=== PATIENT | male | born 1955 | race Caucasian/White ===

== ENCOUNTER 2017-01-18 19:53 | Inpatient (IN) | payer OTHER ==
--- NOTE | ~2017-01-18 | DS ---
Discharge Summary [facility] [address] [place]. [address] NAME: DANNY QUAN : 53 STATUS : DIS IN PAT#: [id number] AGE: 61 ADM/REG DATE : 01/18/17 MR#: [id number] REPORT SERV DATE: 01/26/17 DICTATED BY: Thomas SMITH DATE: 01/25/17 REPORT STATUS : Draft TRANSCRIBED BY: MODL DATE: 01/25/17 ADMISSION DATE: 01/18/2017 DISCHARGE DATE: 01/25/2017 DISCHARGE DIAGNOSES: 1. Cellulitis right lower extremity with superficial wounds. 2. Chronic lymphedema with venous stasis. 3. Chronic obstructive pulmonary disease with chronic home oxygen. 4. Chronic hyponatremia. 5. General debility. 6. Chronic diastolic heart failure with cor pulmonale. 7. Hypertension. 8. Hypothyroidism. 9. Cutaneous andrea. 10.Morbid obesity. 11.Tobacco abuse. HISTORY OF PRESENT ILLNESS: For complete history, please see admission H and P by Dr. Liborio Velez as well as interim discharge summary by myself on 01/22/2017. Briefly, Mr. Quan is a 61-year-old gentleman who presented to the emergency room with lower extremity wounds with drainage. He was admitted to the Hospitalist Service for further evaluation and treatment. HOSPITAL COURSE: The wound culture did come up positive, and the wound culture showed abundant growth of Enterobacter species, Proteus mirabilis, as well as methicillin sensitive Staphylococcus aureus. Initially, Mr. Quan was placed on vancomycin and Rocephin; however, when his final wound culture came back, he was placed on Maxipime 1 g IV q.6 and his vancomycin and Rocephin were discontinued. Over the next several days, he continued to improve. The right lower extremity erythema lessened. His home dose of Lasix 120 mg p.o. daily was changed to 2 mg of Bumex p.o. daily. He did diurese nicely with this change, and on the morning of January 25, he was medically approved as well as insurance approval was received for Mr. Quan to transfer to [facility] to continue rehab and wound care. When I saw him on the late morning of January 22, he was in no acute distress. His right lower extremity erythema continued to improve. He had no new complaints, and he was ready to go to [facility] for rehab. His vital signs were stable. He was afebrile, O2 saturation on 4 L 94%. Therefore, it was felt that he could transfer over to rehab safely, continuing oral antibiotics coverage for his wounds as well as PT and OT for his immobility and general debility. DISCHARGE INSTRUCTIONS: Include: 1. Activity as tolerated with PT and OT, evaluate and treat. 2. Diet 4 g sodium, cardiac diet is recommended with an 1800 mL fluid restriction on a daily basis. DISCHARGE MEDICATIONS: Are as follows: Discharge Summary [place] [id number] [place]. [address] NAME: DANNY QUAN : 53 STATUS : DIS IN PAT#: [id number] AGE: 61 ADM/REG DATE : 01/18/17 MR#: [id number] REPORT SERV DATE: 01/26/17 DICTATED BY: Thomas SMITH DATE: 01/25/17 REPORT STATUS : Draft TRANSCRIBED BY: ADORE DATE: 01/25/17 1. Bumex 2 mg p.o. daily. 2. Synthroid 125 mcg p.o. daily. 3. Nystatin topical t.i.d. to affected area. 4. MiraLAX one packet p.o. b.i.d. 5. Senokot 2 tablets p.o. daily, hold for loose stool. 6. Percocet 10/325 one p.o. q.4 hours p.r.n., hold for sedation. 7. Levaquin 750 mg p.o. daily to be discontinued after the last dose on 01/29/2017. Other discharge instructions include Mr. Quan will follow up with his primary care provider, Dr. Najma Holm, after discharge from rehab. DICTATED BY: DAMIAN Rizo DICTATED FOR: Eloisa Barrow/ADORE DAMIAN Rizo Thomas Smith M.D. / [id number] CC: Eloisa De La Rosa M.D.
--- NOTE | ~2017-01-18 | HP ---
History And Physical [place] [id number] [facility] [place]. [address] NAME: DANNY QUAN : 53 STATUS : ADM Boris PAT#: [id number] AGE: 61 ADM/REG DATE : 01/18/17 MR#: [id number] REPORT SERV DATE: 01/19/17 DICTATED BY: MARIA TERESA SIDDIQUI DATE: 01/19/17 REPORT STATUS : Draft TRANSCRIBED BY: MODL DATE: 01/19/17 DATE OF ADMISSION: 01/18/2017 POINT OF ENTRY: [facility] Emergency Department. CHIEF COMPLAINT: Lower extremity wounds with drainage. HISTORY OF PRESENT ILLNESS: Mr. Quan is a 61-year-old gentleman with history of morbid obesity with chronic lower extremity lymphedema and chronic venous stasis with stasis dermatitis and recurrent cellulitis, who presents to the emergency department today with a three to four-day history of worsening lower extremity swelling, erythema, warmth, as well as superficial skin ulcerations with some serous drainage. The patient was last admitted to our service in 12/2015 for recurrent lower extremity cellulitis. After being treated and diuresed, he was discharged to rehab where he states he stayed about two to three weeks and then was discharged to home with home health and home wound care therapy. The patient states that his legs have done well since then. He has not required any further hospitalizations and/or ER visits up until tonight. The patient states that for the past few days, he started to notice worsening lower extremity edema, erythema, as well as pain and warmth on palpation. He also reports some right greater than left superficial skin breakdown and associated serous drainage from the legs. He did not call any of his physicians to receive oral antibiotic therapy. He denies any fevers, night sweats, or chills. Initial evaluation in the emergency department was notable for stable vital signs. He is afebrile. Labs were notable for a normal white count with a sodium level of 129. Chest x- ray shows some mild intravascular volume overload. Lower extremities were negative for DVT. Urinalysis was positive for urinary tract infection. The patient was started on IV Rocephin and vancomycin and admitted to the Hospitalist Service. REVIEW OF SYSTEMS: Comprehensive review of systems otherwise negative unless listed in the history of present illness. PREVIOUS MEDICAL HISTORY: 1. Morbid obesity. 2. Chronic lower extremity lymphedema with chronic venous stasis and stasis dermatitis. 3. Recurrent lower extremity cellulitis. 4. COPD, on chronic 4 L nasal cannula. 5. Presumed obstructive sleep apnea and obesity hypoventilation syndrome. 6. Hypothyroidism. 7. Chronic hepatitis C. 8. Hypertension. 9. History of breast cancer, status post mastectomy. 10.Reported history of chronic diastolic congestive heart failure with cor pulmonale, History And Physical [address] [address] NAME: DANNY QUAN : 53 STATUS : ADM Boris PAT#: [id number] AGE: 61 ADM/REG DATE : 01/18/17 MR#: [id number] REPORT SERV DATE: 01/19/17 DICTATED BY: MARIA TERESA SIDDIQUI DATE: 01/19/17 REPORT STATUS : Draft TRANSCRIBED BY: ADORE DATE: 01/19/17 although no echocardiogram in our system to review. 11.History of peripheral vascular disease and abdominal aortic aneurysm. SURGICAL HISTORY: Mastectomy. ALLERGIES: NO KNOWN DRUG ALLERGIES. HOME MEDICATIONS: 1. Lasix 40 mg t.i.d. 2. Levothyroxine 125 mcg daily. 3. Lisinopril 20 mg daily. 4. Aleve 220 mg b.i.d. 5. Roxicodone with Tylenol 10/325 one tablet q.6 hours p.r.n. SOCIAL HISTORY: Denies any tobacco, alcohol, or illicits. FAMILY HISTORY: Notable for coronary artery disease and hypertension. LABS AND IMAGIN. White count is 7.7, hemoglobin is 14.7, hematocrit is 44.3, platelets 227. INR 1.2. 2. Sodium is 129, potassium 3.5, chloride 91, carbon dioxide 34, BUN 7, creatinine 0.63, glucose is 98, calcium is 8.2, magnesium is 1.7, protein is 7.5, albumin is 2.8, bili is 1.3, ALT is 13, AST is 19, alk phos is 54. 3. Troponin is negative. BNP is 41. 4. Lactic acid 0.8. 5. Lipase is 71. 6. Urinalysis; specific gravity is 1.011, moderate leukocyte esterase with 36 white blood cells per high-powered field. 7. Lower extremity Doppler negative for DVT. 8. Chest x-ray per my review shows poor penetration and inspiratory technique, but is concerned for some mild intravascular volume overload. PHYSICAL EXAMINATION: VITAL SIGNS: Temperature is 97.9 degrees Fahrenheit, pulse is 106, respirations 18, satting 94% on room air, blood pressure 150/80. On recheck, blood pressure is now 130/71, pulse is 71. GENERAL: The patient is awake, alert, in no acute distress. Resting comfortably. He is a morbidly obese appearing male. He is very disheveled and unkempt. HEENT: Atraumatic and normocephalic. Moist mucous membranes. Pupils are equal, round, reactive to light and accommodation. Extraocular eye movements intact. No scleral icterus. NECK: No jugular venous distention. No carotid bruits. CARDIAC: Regular rate and rhythm. No murmurs or gallops. Normal S1 and S2. LUNGS: Clear to auscultation bilaterally. No wheezes, rhonchi, or crackles. Distant breath sounds. ABDOMEN: Obese, soft, nontender, nondistended. Good bowel sounds. No rebound, guarding, or rigidity. EXTREMITIES: Bilateral lower extremities show evidence of chronic lymphedema with chronic History And Physical [address] [address] NAME: DANNY QUAN : 53 STATUS : ADM Boris PAT#: [id number] AGE: 61 ADM/REG DATE : 01/18/17 MR#: [id number] REPORT SERV DATE: 01/19/17 DICTATED BY: MARIA TERESA SIDDIQUI DATE: 01/19/17 REPORT STATUS : Draft TRANSCRIBED BY: MODJames DATE: 01/19/17 venous stasis and stasis dermatitis. The left lower extremity does not appear to have any purulence or drainage. It is somewhat warm to the touch. The right lower extremity has few different areas of superficial skin ulcerations and/or breakdown with associated serous drainage in addition to erythema and warmth on palpation, but no palpable fluid collections. SKIN: Warm and dry except for noted above. PSYCHIATRIC: Affect appropriate. NEUROLOGIC: Alert and oriented x3. Cranial nerves 2 through 12 grossly intact. Speech is normal. Gait not assessed. ASSESSMENT AND PLAN: Mr. Quan is a 61-year-old gentleman with history of morbid obesity, lower extremity lymphedema with chronic venous stasis and stasis dermatitis, who presents with a three to four-day history of the above-mentioned complaints with findings concerning most of lower extremity venous stasis dermatitis with possible cellulitis. PROBLEM LIST: 1. Lower extremity lymphedema with venous stasis dermatitis and possible overlying cellulitis. 2. Hyponatremia. 3. Urinary tract infection. 4. Morbid obesity. 5. Chronic hypoxic respiratory failure. 6. Presumed obstructive sleep apnea, obesity hypoventilation syndrome. 7. History of chronic diastolic congestive heart failure. PLAN: 1. Lower extremity lymphedema with venous stasis dermatitis and possible cellulitis. We will empirically place the patient on IV antibiotics of vancomycin and Rocephin. Follow up blood and wound cultures. We will consult Wound Care for assistance. We will also convert the patient's Lasix to IV form for at least 24 hours to assist with diuresis. The patient may also benefit from some Unna boots and/or compressive wound therapy. We will defer to wound care nurses. 2. Hyponatremia. The patient had some degree of chronic hyponatremia per review of [facility] records. Suspect this might be due to volume overload. We will check urine lytes, thyroid function studies, serum osmolality, but we will see how his sodium level responds to the IV Lasix diuresis. 3. Urinary tract infection. Follow up urine culture. Treating with IV Rocephin. 4. Reported history of chronic diastolic congestive heart failure with cor pulmonale. I do not have any echocardiogram in our system to review that documents this. I will order an echocardiogram to confirm. 5. Hypertension. Continue the patient's home medications. 6. Hypothyroidism. Checking thyroid function studies. 7. DVT prophylaxis. Lovenox subcu. CODE STATUS: The patient wishes to be full code. History And Physical [address] [address] NAME: DANNY QUAN : 53 STATUS : ADM Boris PAT#: [id number] AGE: 61 ADM/REG DATE : 01/18/17 MR#: [id number] REPORT SERV DATE: 01/19/17 DICTATED BY: MARIA TERESA SIDDIQUI DATE: 01/19/17 REPORT STATUS : Draft TRANSCRIBED BY: ADORE DATE: 01/19/17 ANITRA/ADORE Maria Teresa Siddiqui MD / [id number] CC: Eloisa Dick M.D.
--- NOTE | ~2017-01-18 | IDS ---
Interim Discharge Summary [facility] [address] [place]. [address] NAME: DANNY QUAN : 53 STATUS : ADM IN [facility]#: [id number] AGE: 61 ADM/REG DATE : 01/18/17 MR#: [id number] REPORT SERV DATE: 01/23/17 DICTATED BY: Thomas SMITH DATE: 01/22/17 REPORT STATUS : Draft TRANSCRIBED BY: MODL DATE: 01/22/17 ADMISSION DATE: 01/18/2017 DISCHARGE DATE: CURRENT INTERIM DIAGNOSES: 1. Cellulitis of the right lower extremity with superficial wounds, wound culture shows MSSA, Proteus, and Enterobacter. 2. Chronic lymphedema with venous stasis. 3. Chronic obstructive pulmonary disease with chronic home oxygen. 4. Chronic hyponatremia. 5. General debility. 6. Chronic diastolic heart failure with cor pulmonale. 7. Volume overload. 8. Hypertension. 9. Hypothyroidism. 10.Cutaneous andrea. 11.Morbid obesity. 12.Tobacco abuse. IMAGING AND DIAGNOSTICS: 1. Echocardiogram on 01/20/2017 showed preserved LV systolic function with estimated EF of 60% to 65%. The interventricular septum is flattened during systole and diastole, concerning for RV pressure and volume overload. No clear evidence of valvular regurgitation or stenosis. Elevated right atrial and central venous pressures. 2. On 01/18/2017, portable chest x-ray showed low lung volumes with mild left basilar atelectasis, otherwise no acute cardiopulmonary abnormality identified. 3. On 01/18/2017, venous duplex of the bilateral lower extremities was negative for DVT, however, shows small bilateral Astudillo cysts. HISTORY OF PRESENT ILLNESS: For complete history, please refer to admission H and P by Dr. Naveed Velez. Briefly, Mr. Quan is a pleasant 61-year-old gentleman with chronic lymphedema and chronic venous stasis with stasis dermatitis and recurrent cellulitis, presenting to the emergency room on his date of admission with 3 to 4 day history of worsening lower extremity swelling, erythema, warmth, and superficial skin ulcerations with serous drainage. He was admitted to the Hospitalist Service for further evaluation and treatment. HOSPITAL COURSE: Mr. Quan was admitted initially the CDU with a diagnosis of lower extremity cellulitis, hyponatremia, urinary tract infection, and lymphedema. He was placed on oxygen as he is O2 dependent with COPD. He was given IV Lasix q.8 hours for 24 hours and placed on Rocephin and vancomycin IV. A Wound Care consult was requested. I initially saw the patient on 01/19/2017. He complained of increasing pain in the right lower extremity. He states that he was always short of breath and worse with activity. He reported that he smokes a pack and a half a day, had no intention of stopping smoking, and utilize home oxygen at 4 L per nasal cannula continuously. He is followed by a primary care provider Dr. Najma Holm, on an outpatient basis. His right lower extremity was recently dressed by Interim Discharge Summary [place] [id number] [facility] [place]. [address] NAME: DANNY QUAN : 53 STATUS : ADM IN [facility]#: [id number] AGE: 61 ADM/REG DATE : 01/18/17 MR#: [id number] REPORT SERV DATE: 01/23/17 DICTATED BY: Thomas SMITH DATE: 01/22/17 REPORT STATUS : Draft TRANSCRIBED BY: ADORE DATE: 01/22/17 wound care nurse, therefore on this date, I did not unwrap it to assess his wounds. He did have pitting edema bilaterally right leg greater than the left. I was able to see some right lower extremity erythema above the top of the dressing on his right calf. Looking back, he has chronic hyponatremia. In addition, Mr. Quan describes poor living conditions at his home where he basically sits up all day long drinking Diet Cokes or water and smoking cigarettes. He reports that he has not been able to sleep in his bed as his bed is too high off the ground for him to get in, therefore he sleeps on the couch nightly. In addition, he reports that he has a severe problem with bugs and roaches in his home. He is unable to reach the most of his body parts for bathing and hygiene purposes, and especially his feet he cannot reach them to bathe them. He has severe dry crusting on both of his feet bilaterally. I asked Physical therapy to evaluate the patient on 01/20/2017, they have recommended detention facility at the time of discharge. Mr. Quan was placed on bed rest with elevation of his legs. He does have cutaneous andrea in the skin folds of his morbidly obese abdomen. Nystatin powder has been prescribed for this. He is on fluid restrictions and did receive IV diuresis through the morning of 01/22/2017. His wound culture came back showing abundant growth of Enterobacter, Proteus, and methicillin- sensitive Staph aureus. He had very little improvement of the erythema and draining of his wounds on the right lower extremity, and on the , I changed his antibiotics from vancomycin and Rocephin to IV Maxipime 1 g q.6 hours. He does have three separate superficial wounds on the right lower extremity. They are very foul smelling and continued to drain scant amounts. Wound Care has seen the patient and recommended cleaning his wounds with cleanser, patting dry, and covering ulcers with Mepilex Ag foam. I did give him a dose of Bumex this afternoon p.o. 2 mg and scheduled it for daily as the patient has been on 120 mg of Lasix p.o. on a daily basis prior to admission. He did have good diuretic response. DISPOSITION: Currently pending with the change from IV Rocephin and vancomycin today to Maxipime. Hopefully, his cellulitis in the right lower extremity will show improvement. He will be going to [facility]. He is medically approved for them, however, pending insurance approval as the patient has [employer]. DICTATED BY: CHRIS Rizo-BC PREETI/ADORE Thomas Smith M.D. / [id number] CC: Eloisa Barrow M.D.
[~2017-01-18 19:53] MED LIST: ALEVE220 MG PO; ASA5GR PO; ASAB PO; ASABAYER PO; CIP5 PO; DEMA10T PO; DSS PO; FLORASTOR250 MG PO; KLOR-CON M2020 MEQ PO; L40 PO; LACHYDRIN LOT225 GM T; LEVAQUIN750 MG PO; LEVOTHYROXIN125 MCG PO; LEVOTHYROXIN75 MCG PO; LOTRIMIN AF12 EX; LOTRIMIN AF12 TOP; MAGOX4 PO; NORCO1 TA1 PO; NORCO1 TAB PO; PRAVAC PO; PRIN10 PO; PRIN2.5 PO; PRIN20 PO; SILVADENE1 % TOP; SYN125 PO; VIBRATAB100 MG PO; ZESTRIL20 MG PO; ZYVOXPO PO
[2017-01-18 20:20] LABS: ASCORBIC ACID (UR NOT ORDER) NEG (NEG); BILIRUBIN, URINE NEGATIVE (NEG); ER URINALYSIS TAT 0 Hrs 13 Mins; KETONE, URINE NEGATIVE (NEG); LEUKOCYTE ESTERASE(NOT OR MOD (NEG); NITRITE (URINE) NEG (NEG); WBC (NOT ORDERED) (RFLEX) 36 (0-5)
[2017-01-18] MEDS ORDERED: PERCOCET 10/3251 TAB PO (20:41)
[2017-01-18] MEDS ORDERED: LEVOTHYROXIN125 MCG PO (20:42)
[2017-01-18] MEDS ORDERED: L40 PO (20:43)
[2017-01-18] MEDS ORDERED: ZESTRIL20 MG PO (20:44)
[2017-01-18] MEDS ORDERED: ALEVE220 MG PO (20:44)
[2017-01-18 20:52] LABS: BASOPHILS 0.3 %; BASOPHILS ABSOLUTE 0.02 10/3/uL (0.0-0.16); EOSINOPHILS 2.6 %; ER CBC TAT 0 Hrs 07 Mins; HEMATOCRIT 44.3 % (40.0-51.0); HEMOGLOBIN 14.7 g/dL (13.6-17.8); IMMATURE GRANULOCYTES 0.1 %; IMMATURE GRANULOCYTES ABSOLUTE 0.01 10/3/uL (0.0-0.11); LYMPHOCYTES 17.5 %; LYMPHOCYTES ABSOLUTE 1.35 10/3/uL (0.67-4.30); MEAN CORPUS HGB CONC 33.2 g/dL (32.0-36.0); MEAN CORPUSCULAR HEMOGLOB 30.2 pg (26.0-34.0); MEAN CORPUSCULAR VOLUME 91.2 fL (80-100); MEAN PLATELET VOLUME 8.8 fL (9.2-13.0); MONOCYTES 15.2 %; MONOCYTES ABSOLUTE 1.17 10/3/uL (0.21-1.20); NEUTROPHILS 64.3 %; NEUTROPHILS ABSOLUTE 4.95 10/3/uL (2.02-8.40); PLATELET COUNT 227 10/3/uL (150-400); RBC DISTRIBUTION WIDTH 13.1 % (12.0-16.0); RED CELL COUNT 4.86 10/6/uL (4.7-6.1); WHITE BLOOD CELLS 7.7 10/3/uL (4.5-10.5)
[2017-01-18 20:54] LABS: MANUAL DIFF NO %
[2017-01-18 21:00] LABS: INTERNATIONAL NORMAL RATI 1.2 UNITS (-); PARTIAL THROMBO TIME 42.3 SEC (22.5-37.2); PROTIME (NOT ORD) 15.3 SEC (12.0-14.5)
[2017-01-18 21:13] LABS: ALBUMIN 2.8 G/DL (3.5-5.0); ALKALINE PHOSPHATASE 54 U/L (45-117); BUN (BLOOD UREA NITROGEN) 7 MG/DL (6-23); CALCIUM, SERUM 8.2 MG/DL (8.5-10.4); CHEST PAIN PROFILE TAT 0 Hrs 00 Mins; CHLORIDE, SERUM 91 MMOL/L (96-112); CO2 (CARBON DIOXIDE) 34 MMOL/L (24-34); CREATININE 0.63 MG/DL (0.70-1.30); DIRECT BILIRUBIN 0.4 MG/DL (0.0-0.4); GFR AFRICAN AMERICAN 122 ML/MIN (>=60); GFR NON AFRICAN AMERICAN 106 ML/MIN (>=60); GLUCOSE, SERUM 98 MG/DL (60-99); INDIRECT BILIRUBIN(NOT ORDER) 0.9 MG/DL (0.1-0.9); POTASSIUM, SERUM 3.5 MMOL/L (3.5-5.3); SGOT(AST) 19 U/L (5-40); SGPT(ALT) 13 U/L (5-65); SODIUM, SERUM 129 MMOL/L (135-148); TOTAL BILIRUBIN 1.3 MG/DL (0-1.2); TOTAL PROTEIN 7.5 G/DL (6.0-8.5); TROPONIN I <0.02 NG/ML (<0.05)
[2017-01-18 21:14] LABS: LACTATE 0.8 MMOL/L (0.3-2.4)
[2017-01-19 06:50] LABS: BUN (BLOOD UREA NITROGEN) 8 MG/DL (6-23); CALCIUM, SERUM 8.4 MG/DL (8.5-10.4); CHLORIDE, SERUM 92 MMOL/L (96-112); CREATININE 0.76 MG/DL (0.70-1.30); FREE T4 1.19 NG/DL (0.76-1.46); GFR AFRICAN AMERICAN 113 ML/MIN (>=60); GFR NON AFRICAN AMERICAN 98 ML/MIN (>=60); GLUCOSE, SERUM 94 MG/DL (60-99); SODIUM, SERUM 131 MMOL/L (135-148)
[2017-01-19 06:53] LABS: CO2 (CARBON DIOXIDE) 29 MMOL/L (24-34); POTASSIUM, SERUM 3.9 MMOL/L (3.5-5.3)
[2017-01-19 08:26] LABS: BASOPHILS 0.4 %; BASOPHILS ABSOLUTE 0.03 10/3/uL (0.0-0.16); EOSINOPHILS 3.5 %; EOSINOPHILS ABSOLUTE 0.26 10/3/uL (0.0-0.53); HEMATOCRIT 48.2 % (40.0-51.0); HEMOGLOBIN 15.7 g/dL (13.6-17.8); IMMATURE GRANULOCYTES 0.3 %; IMMATURE GRANULOCYTES ABSOLUTE 0.02 10/3/uL (0.0-0.11); LYMPHOCYTES 13.6 %; LYMPHOCYTES ABSOLUTE 1.01 10/3/uL (0.67-4.30); MEAN CORPUS HGB CONC 32.6 g/dL (32.0-36.0); MEAN CORPUSCULAR HEMOGLOB 30.7 pg (26.0-34.0); MEAN PLATELET VOLUME 9.5 fL (9.2-13.0); MONOCYTES 12.9 %; MONOCYTES ABSOLUTE 0.96 10/3/uL (0.21-1.20); NEUTROPHILS 69.3 %; NEUTROPHILS ABSOLUTE 5.14 10/3/uL (2.02-8.40); PLATELET COUNT 242 10/3/uL (150-400); RBC DISTRIBUTION WIDTH 13.3 % (12.0-16.0); RED CELL COUNT 5.12 10/6/uL (4.7-6.1); WHITE BLOOD CELLS 7.4 10/3/uL (4.5-10.5)
[2017-01-19 08:27] LABS: MANUAL DIFF NO %; MEAN CORPUSCULAR VOLUME 94.1 fL (80-100)
[2017-01-19 08:48] LABS: PLATELET ESTIMATE ADQ (ADEQUATE); RBC MORPHOLOGY NORM (NORMAL)
[2017-01-19 12:37] LABS: BUN (BLOOD UREA NITROGEN) 8 MG/DL (6-23); CALCIUM, SERUM 8.2 MG/DL (8.5-10.4); CHLORIDE, SERUM 93 MMOL/L (96-112); GFR AFRICAN AMERICAN 106 ML/MIN (>=60); GFR NON AFRICAN AMERICAN 91 ML/MIN (>=60); SODIUM, SERUM 130 MMOL/L (135-148)
[2017-01-19 12:39] LABS: CO2 (CARBON DIOXIDE) 34 MMOL/L (24-34); GLUCOSE, SERUM 102 MG/DL (60-99)
[2017-01-20 04:45] LABS: BASOPHILS 0.3 %; BASOPHILS ABSOLUTE 0.02 10/3/uL (0.0-0.16); EOSINOPHILS 2.6 %; EOSINOPHILS ABSOLUTE 0.18 10/3/uL (0.0-0.53); HEMATOCRIT 45.3 % (40.0-51.0); HEMOGLOBIN 14.3 g/dL (13.6-17.8); IMMATURE GRANULOCYTES 0.3 %; IMMATURE GRANULOCYTES ABSOLUTE 0.02 10/3/uL (0.0-0.11); LYMPHOCYTES 13.3 %; LYMPHOCYTES ABSOLUTE 0.91 10/3/uL (0.67-4.30); MEAN CORPUS HGB CONC 31.6 g/dL (32.0-36.0); MEAN CORPUSCULAR HEMOGLOB 30.2 pg (26.0-34.0); MEAN CORPUSCULAR VOLUME 95.8 fL (80-100); MEAN PLATELET VOLUME 9.6 fL (9.2-13.0); MONOCYTES 15.6 %; MONOCYTES ABSOLUTE 1.07 10/3/uL (0.21-1.20); NEUTROPHILS 67.9 %; NEUTROPHILS ABSOLUTE 4.66 10/3/uL (2.02-8.40); PLATELET COUNT 234 10/3/uL (150-400); RBC DISTRIBUTION WIDTH 13.3 % (12.0-16.0); RED CELL COUNT 4.73 10/6/uL (4.7-6.1); WHITE BLOOD CELLS 6.9 10/3/uL (4.5-10.5)
[2017-01-20 04:47] LABS: MANUAL DIFF NO %
[2017-01-20 05:04] LABS: CALCIUM, SERUM 8.1 MG/DL (8.5-10.4); CHLORIDE, SERUM 92 MMOL/L (96-112); CO2 (CARBON DIOXIDE) 36 MMOL/L (24-34); CREATININE 1.18 MG/DL (0.70-1.30); GFR AFRICAN AMERICAN 76 ML/MIN (>=60); GFR NON AFRICAN AMERICAN 66 ML/MIN (>=60); POTASSIUM, SERUM 4.2 MMOL/L (3.5-5.3); SODIUM, SERUM 132 MMOL/L (135-148)
[2017-01-20 05:11] LABS: BUN (BLOOD UREA NITROGEN) 16 MG/DL (6-23); GLUCOSE, SERUM 104 MG/DL (60-99)
[2017-01-21 06:15] LABS: BASOPHILS 0.3 %; BASOPHILS ABSOLUTE 0.02 10/3/uL (0.0-0.16); EOSINOPHILS ABSOLUTE 0.29 10/3/uL (0.0-0.53); HEMATOCRIT 44.5 % (40.0-51.0); IMMATURE GRANULOCYTES 0.3 %; IMMATURE GRANULOCYTES ABSOLUTE 0.02 10/3/uL (0.0-0.11); LYMPHOCYTES ABSOLUTE 1.22 10/3/uL (0.67-4.30); MEAN CORPUS HGB CONC 31.5 g/dL (32.0-36.0); MEAN CORPUSCULAR HEMOGLOB 30.4 pg (26.0-34.0); MEAN CORPUSCULAR VOLUME 96.5 fL (80-100); MEAN PLATELET VOLUME 9.2 fL (9.2-13.0); MONOCYTES 17.7 %; MONOCYTES ABSOLUTE 1.27 10/3/uL (0.21-1.20); NEUTROPHILS 60.7 %; NEUTROPHILS ABSOLUTE 4.36 10/3/uL (2.02-8.40); PLATELET COUNT 243 10/3/uL (150-400); RBC DISTRIBUTION WIDTH 13.3 % (12.0-16.0); RED CELL COUNT 4.61 10/6/uL (4.7-6.1); WHITE BLOOD CELLS 7.2 10/3/uL (4.5-10.5)
[2017-01-21 06:16] LABS: MANUAL DIFF NO %
[2017-01-21 06:37] LABS: BUN (BLOOD UREA NITROGEN) 18 MG/DL (6-23); CALCIUM, SERUM 8.2 MG/DL (8.5-10.4); CHLORIDE, SERUM 91 MMOL/L (96-112); CO2 (CARBON DIOXIDE) 39 MMOL/L (24-34); CREATININE 0.93 MG/DL (0.70-1.30); GFR AFRICAN AMERICAN 102 ML/MIN (>=60); GFR NON AFRICAN AMERICAN 88 ML/MIN (>=60); POTASSIUM, SERUM 4.2 MMOL/L (3.5-5.3); SODIUM, SERUM 132 MMOL/L (135-148); VANCOMYCIN TROUGH 11.2 MCG/ML (10.0-20.0)
[2017-01-21 06:38] LABS: GLUCOSE, SERUM 100 MG/DL (60-99)
[2017-01-22 07:06] LABS: BASOPHILS 0.4 %; BASOPHILS ABSOLUTE 0.03 10/3/uL (0.0-0.16); EOSINOPHILS 5.4 %; EOSINOPHILS ABSOLUTE 0.37 10/3/uL (0.0-0.53); IMMATURE GRANULOCYTES 0.1 %; IMMATURE GRANULOCYTES ABSOLUTE 0.01 10/3/uL (0.0-0.11); LYMPHOCYTES ABSOLUTE 0.69 10/3/uL (0.67-4.30); MANUAL DIFF NO %; MEAN CORPUS HGB CONC 31.8 g/dL (32.0-36.0); MEAN CORPUSCULAR HEMOGLOB 30.1 pg (26.0-34.0); MEAN CORPUSCULAR VOLUME 94.6 fL (80-100); MEAN PLATELET VOLUME 9.3 fL (9.2-13.0); MONOCYTES 16.7 %; MONOCYTES ABSOLUTE 1.15 10/3/uL (0.21-1.20); NEUTROPHILS 67.4 %; NEUTROPHILS ABSOLUTE 4.65 10/3/uL (2.02-8.40); PLATELET COUNT 242 10/3/uL (150-400); RBC DISTRIBUTION WIDTH 13.5 % (12.0-16.0); RED CELL COUNT 4.65 10/6/uL (4.7-6.1); WHITE BLOOD CELLS 6.9 10/3/uL (4.5-10.5)
[2017-01-22 07:19] LABS: BUN (BLOOD UREA NITROGEN) 18 MG/DL (6-23); CALCIUM, SERUM 8.6 MG/DL (8.5-10.4); CHLORIDE, SERUM 92 MMOL/L (96-112); CO2 (CARBON DIOXIDE) 36 MMOL/L (24-34); CREATININE 0.75 MG/DL (0.70-1.30); GFR AFRICAN AMERICAN 114 ML/MIN (>=60); GFR NON AFRICAN AMERICAN 98 ML/MIN (>=60); SODIUM, SERUM 131 MMOL/L (135-148)
[2017-01-22 07:20] LABS: GLUCOSE, SERUM 111 MG/DL (60-99)
[2017-01-23 09:35] LABS: BASOPHILS 0.3 %; BASOPHILS ABSOLUTE 0.02 10/3/uL (0.0-0.16); EOSINOPHILS 4.3 %; HEMATOCRIT 44.4 % (40.0-51.0); HEMOGLOBIN 14.3 g/dL (13.6-17.8); IMMATURE GRANULOCYTES 0.1 %; IMMATURE GRANULOCYTES ABSOLUTE 0.01 10/3/uL (0.0-0.11); LYMPHOCYTES 15.2 %; LYMPHOCYTES ABSOLUTE 1.07 10/3/uL (0.67-4.30); MEAN CORPUS HGB CONC 32.2 g/dL (32.0-36.0); MEAN CORPUSCULAR HEMOGLOB 30.2 pg (26.0-34.0); MEAN CORPUSCULAR VOLUME 93.7 fL (80-100); MEAN PLATELET VOLUME 9.2 fL (9.2-13.0); MONOCYTES 11.6 %; MONOCYTES ABSOLUTE 0.82 10/3/uL (0.21-1.20); NEUTROPHILS 68.5 %; NEUTROPHILS ABSOLUTE 4.83 10/3/uL (2.02-8.40); PLATELET COUNT 234 10/3/uL (150-400); RBC DISTRIBUTION WIDTH 13.6 % (12.0-16.0); RED CELL COUNT 4.74 10/6/uL (4.7-6.1); WHITE BLOOD CELLS 7.1 10/3/uL (4.5-10.5)
[2017-01-23 09:36] LABS: MANUAL DIFF NO %
[2017-01-23 09:47] LABS: BUN (BLOOD UREA NITROGEN) 18 MG/DL (6-23); CALCIUM, SERUM 8.7 MG/DL (8.5-10.4); CHLORIDE, SERUM 90 MMOL/L (96-112); CO2 (CARBON DIOXIDE) 40 MMOL/L (24-34); CREATININE 0.85 MG/DL (0.70-1.30); GFR AFRICAN AMERICAN 108 ML/MIN (>=60); GFR NON AFRICAN AMERICAN 93 ML/MIN (>=60); GLUCOSE, SERUM 130 MG/DL (60-99); POTASSIUM, SERUM 4.2 MMOL/L (3.5-5.3); SODIUM, SERUM 133 MMOL/L (135-148)
[2017-01-25 14:31] LABS: BUN (BLOOD UREA NITROGEN) 27 MG/DL (6-23); CALCIUM, SERUM 8.7 MG/DL (8.5-10.4); CHLORIDE, SERUM 90 MMOL/L (96-112); CO2 (CARBON DIOXIDE) 38 MMOL/L (24-34); CREATININE 0.95 MG/DL (0.70-1.30); GFR AFRICAN AMERICAN 99 ML/MIN (>=60); GFR NON AFRICAN AMERICAN 85 ML/MIN (>=60); GLUCOSE, SERUM 130 MG/DL (60-99); SODIUM, SERUM 132 MMOL/L (135-148)
== END 2017-01-25 15:59 | DRG 603 ==
LOC: ER 19:53 → CDU1 20:00 → CDU2 01-19 02:29 → 4SO 01-20 15:57
PROVIDERS: Emergency Medicine; Internal Medicine; Nurse Practitioner
DX: L03.115 Cellulitis of right lower limb (principal); I27.81 Cor pulmonale (chronic); E87.1 Hypo-osmolality and hyponatremia; I11.0 Hypertensive heart disease with heart failure; I50.32 Chronic diastolic (congestive) heart failure; Z68.42 Body mass index [BMI] 45.0-49.9, adult; I87.8 Other specified disorders of veins; J44.9 Chronic obstructive pulmonary disease, unspecified; Z99.81 Dependence on supplemental oxygen; E03.9 Hypothyroidism, unspecified; F17.210 Nicotine dependence, cigarettes, uncomplicated; E66.01 Morbid (severe) obesity due to excess calories
CPT/HCPCS: 71010; 80048; 80076; 80202; 81001; 83605; 83690; 83735; 83880; 83930; 84439; 84443; 84484; 85025; 85347; 85610; 85730; 87040; 87070; 87077; 87086; 87186; 87205; 93970; 94640; 96365; 96375; 96376; 97110-GP; 97116-GP; 97161-GP; 99291; A9270-GY; C8929; G8978-CL-GP; G8979-CI-GP; J0692; J1170; J2405; J3370; Q9957